=== PATIENT | female | born 1990 | race Caucasian/White ===

== ENCOUNTER 2019-05-06 04:09 | Inpatient (IN) ==
[2019-05-06] MEDS ORDERED: PENICILLIN G POTASSIUM 6 MU in DEXTROSE 5% 250 ML IV STA (04:30)
[2019-05-06] MEDS ORDERED: OXYTOCIN 30 UNITS/500 ML BAG IV PRN ×2 (04:30→06:48)
[2019-05-06 04:51] LABS: Hematocrit (blood only) 35.9 % (37-47); Hemoglobin 12.3 g/dL (12.0-16.0); Mean Corpuscular Volume 83.3 fL (80-100); Mean Platelet Volume 9.2 fL (7.4-10.4); Platelet Count 210 K/uL (130-400); RDW Coefficient of Variation 14.7 % (11.5-14.5); RDW Standard Deviation 44.9 fL (36.4-46.3); Red Blood Count 4.31 M/uL (4.2-5.4); White Blood Count 12.31 K/uL (4.8-10.8)
[2019-05-06] MEDS: LACTATED RINGER'S 1,000 ML IV PRN ×4 (04:53→23:57)
[2019-05-06 05:37] LABS: Mean Corpuscular Hgb Conc 34.3 g/dL (32-36)
--- NOTE | 2019-05-06 06:54 | History & Physical Report ---
Date of Service May 06, 2019 Assessment & Plan (1) Supervision of normal intrauterine in primigravida: - tracing Cat I - mild irregular ctx's - (+) GBS, PCN started - discussed with patient and partner - recommend pitocin, PROM with (+) GBS - pt consents - Epidural prn per patient comfort - anticipate History of Present Illness Chief Complaint: leaking fluid Primary Care Provider: NO PCP The patient is a 28-year-old 1 para 0 with an EDC of 16 May who is admitted at 38+ weeks gestational age with spontaneous rupture of membranes. Patient states of membranes ruptured approximately 0320 hrs. on day of admission. She describes the fluid is clear. Patient denies vaginal bleeding or any contractions. The patient has had a benign course. Her blood type is B+, antibody negative, rubella immune, hepatitis B negative, she declined cell free DNA screening, she declined quad screen, she had a normal 1 hour Glucola x2, and a positive third trimester beta strep culture Allergies Allergy/AdvReac Type Severity Reaction Status Date / Time No Known Allergies Allergy Verified 05/06/19 04:28 Home Medications Home Medications Medication Instructions Recorded Confirmed Type PNV cmb#95-ferrous fumarate-FA 1 tab PO DAILY 05/06/19 05/06/19 History [] docusate sodium [Colace] 100 mg PO DIRECTED PRN 05/06/19 05/06/19 History ferrous sulfate [iron] 325 mg PO DAILY 05/06/19 05/06/19 History fexofenadine [Kassandra Allergy] 180 mg PO DAILY 05/06/19 05/06/19 History Patient History Medical History Anxiety no meds Ovarian cyst 2018 [place] teeth removed at age 17 Social History Preferred Language: Latvian Communication Ability: Effective [employer] Network Architect Required: No Beliefs That Will Affect Care: None marital status: Current Living Situation: Spouse Current Living Situation Comment: town house Other Information That Helps Us Care for You: No Feels Safe at Home: Yes Safety Concerns: Feels Safe At This Time Smoking Status: Never smoker Hx Alcohol Use: No Hx Substance Use: No Physical Exam Constitutional: WD/WN, vitals as above Respiratory: Auscultation: lungs clear to auscultation bilaterally Cardiovascular: RRR, no murmur, no edema Extremities: no calf tenderness Gastrointestinal (Abdomen): Gravid: Vertex, (+) FHT's, mild irregular ctx's, EFW 7 1/2 LBS Genitourinary: OB Exam Monitor Tracing: + external uterine monitor used, + category I and + normal FHT variability Cervix: /-2 Results & Data Vital Signs (Past 12 Hours) Vital Signs Temp Pulse Resp BP 05/06/19 05:57 37.1 C 80 18 112/71 05/06/19 04:33 37 C 74 18 141/81 H 05/06/19 04:24 37.0 C 74 18 141/81 H
[2019-05-06] MEDS: PENICILLIN G POTASSIUM 3 MU in DEXTROSE 5% 100 ML IV PRN ×4 (09:04→21:18)
[2019-05-06] MEDS ORDERED: BUPIVACAINE 0.25% 30 ML VIAL ONE ×2 (11:41→22:25)
[2019-05-06] MEDS ORDERED: ePHEDrine sulfate 50 MG/ML AMP ONE (11:41)
[2019-05-06] MEDS ORDERED: fentaNYL 2MCG/ML ROPIV 1.25MG/ML 100 ML BAG EPI ONE (11:42)
[2019-05-06] MEDS ORDERED: fentaNYL citrate 100 MCG/2 ML VIAL ONE ×2 (11:42→22:25)
--- NOTE | 2019-05-06 12:05 | Anesthesiology Consultation ---
Date of Service May 06, 2019 Assessment & Plan (1) Encounter for pre-operative examination: Chart Review Chart Review: Acceptable Risk for Labor Epidural Consults Requested none ASA ASA2 Proposed Anesthesia Anesthesia Type: Labor Epidural Risk / Benefits Reviewed With: PT / POA / Parent / Guardian, Accepts Plan and Informed Consent Obtained History Height/Weight Height: 5 ft 2 in Weight: 76.204 kg Allergies Allergy/AdvReac Type Severity Reaction Status Date / Time No Known Allergies Allergy Verified 05/06/19 04:28 Medications Home Medications Medication Instructions Recorded Confirmed Last Taken PNV cmb#95-ferrous fumarate-FA 1 tab PO DAILY 05/06/19 05/06/19 05/05/19 09:00 [] docusate sodium [Colace] 100 mg PO DIRECTED PRN 05/06/19 05/06/19 05/04/19 09:00 ferrous sulfate [iron] 325 mg PO DAILY 05/06/19 05/06/19 05/05/19 09:00 fexofenadine [Kassandra Allergy] 180 mg PO DAILY 05/06/19 05/06/19 Unknown Active Medications Generic Name Dose Route Start Last Admin Trade Name Freq PRN Reason Stop Dose Admin Lactated Ringer's 1,000 mls @ 125 mls/hr 05/06/19 04:30 05/06/19 11:50 Lr IV 05/08/19 04:29 999 mls/hr .Q8H PRN Administration L&D Protocol Protocol Penicillin G Potassium 3 mu/ 106 mls @ 100 mls/hr 05/06/19 04:54 05/06/19 10:11 Dextrose IV 05/16/19 04:53 Infused Q4H PRN Infusion Give until delivery Oxytocin 30 units in 500 mls @ 11 mls/hr 05/06/19 06:48 05/06/19 11:05 Pitocin IV 05/08/19 06:47 0.66 units/hr .Q24H PRN 11 mls/hr Labor Induction/Augmentation Titration Protocol 0.66 UNITS/HR Past Medical History Medical History Anxiety no meds Ovarian cyst 2018 [place] teeth removed at age 17 Exercise / Class Metabolic Activity II 4-5 Yardwork/Stairs/Walk up hill Past Anesthesia History No Hx of Anesthesia Complications and No Family Hx of Anesthesia Complications History of PONV No Hx of PONV and No Hx of Motion Sickness Social History Smoking Status: Never smoker Hx Alcohol Use: No Hx Substance Use: No Physical Exam Vital Signs Last Vital Signs Temp 98.1 F 05/06/19 11:09 Pulse 65 05/06/19 11:59 Resp 18 05/06/19 11:09 BP 111/70 05/06/19 10:03 Pulse Ox 99 05/06/19 11:59 ENMT Mouth: no dentition abnormality Thyromental Distance: > or= 3.5 Finger Breadths Mallampati Class: II Neck normal visual inspection Respiratory normal respiratory effort Auscultation: lungs clear to auscultation bilaterally Cardiovascular Rate/Rhythm: regular rate and regular rhythm Testing Laboratory Results 05/06/19 04:41
[2019-05-06] MEDS ORDERED: NALBUPHINE HCL INJ 10 MG/ML AMP IV PRN (12:24)
[2019-05-06] MEDS ORDERED: ONDANSETRON INJ 2 MG/ML 2 ML VIAL IV PRN (12:24)
[2019-05-06] MEDS ORDERED: DiphenhydrAMINE HCL 50 MG/ML VIAL IV PRN (12:24)
[2019-05-06] MEDS ORDERED: NALOXONE HCL 1 MG in SODIUM CHLORIDE 0.9% 1000ML 1,000 ML IV PRN (12:24)
[2019-05-06] MEDS ORDERED: ePHEDrine sulfate 50 MG/ML AMP IV PRN (12:24)
[2019-05-06] MEDS ORDERED: NALOXONE HCL 0.4 MG/1 ML VIAL/CARP IV PRN (12:24)
[2019-05-06] MEDS ORDERED: fentaNYL 2MCG/ML ROPIV 1.25MG/ML 100 ML BAG EPI PRN (12:24)
--- NOTE | 2019-05-06 12:37 | Labor Progress Brief Note ---
Date of Service May 06, 2019 Subjective Comfortable with epidural Assessment & Plan (1) Supervision of normal intrauterine in primigravida: - tracing Cat II - IUPC placed - continue pitocin Physical Exam Genitourinary: Cervix: no change, IUPC placed Results & Data Vital Signs (Past 12 Hours) Vital Signs Temp Pulse Resp BP Pulse Ox 05/06/19 12:34 66 98 05/06/19 12:33 77 108/60 05/06/19 12:31 64 112/64 05/06/19 12:29 67 109/62 100 05/06/19 12:27 66 104/59 L 05/06/19 12:25 68 106/59 L 05/06/19 12:24 66 99 05/06/19 12:23 71 105/57 L 05/06/19 12:19 68 100 05/06/19 12:14 75 100 05/06/19 12:09 84 100 05/06/19 12:04 63 100 05/06/19 11:59 65 99 05/06/19 11:54 61 100 05/06/19 11:49 62 100 05/06/19 11:44 64 100 05/06/19 11:09 36.7 C 18 05/06/19 10:03 93 H 111/70 05/06/19 09:20 82 120/75 05/06/19 08:35 72 106/69 05/06/19 07:27 79 116/72 05/06/19 07:03 78 120/78 05/06/19 07:00 37.0 C 16 05/06/19 05:57 37.1 C 80 18 112/71 05/06/19 04:33 37 C 74 18 141/81 H 05/06/19 04:24 37.0 C 74 18 141/81 H
--- NOTE | 2019-05-06 17:32 | Labor Progress Brief Note ---
Date of Service May 06, 2019 Subjective Comfortable with epidural Assessment & Plan (1) Supervision of normal intrauterine in primigravida: - tracing Cat II - continue pitocin Physical Exam Genitourinary: OB Exam Monitor Tracing: + category II and + normal FHT variability Cervix: 3-4/90/0 Results & Data Vital Signs (Past 12 Hours) Vital Signs Temp Pulse Resp BP Pulse Ox 05/06/19 17:29 80 99 05/06/19 17:26 77 112/70 05/06/19 17:24 73 100 05/06/19 17:19 74 100 05/06/19 17:14 74 100 05/06/19 17:10 67 110/69 05/06/19 17:09 73 99 05/06/19 17:04 76 99 05/06/19 16:59 73 99 05/06/19 16:56 65 105/68 05/06/19 16:54 71 99 05/06/19 16:49 69 99 05/06/19 16:44 66 99 05/06/19 16:40 68 114/72 05/06/19 16:39 71 99 05/06/19 16:34 70 98 05/06/19 16:29 72 99 05/06/19 16:26 75 110/73 05/06/19 16:24 76 99 05/06/19 16:19 76 99 05/06/19 16:14 84 99 05/06/19 16:10 67 118/71 05/06/19 16:09 64 100 05/06/19 16:04 64 100 05/06/19 15:59 71 100 05/06/19 15:57 75 127/54 L 05/06/19 15:54 64 100 05/06/19 15:49 82 100 05/06/19 15:44 74 100 05/06/19 15:40 76 108/63 05/06/19 15:39 93 H 100 05/06/19 15:34 76 100 05/06/19 15:29 70 100 05/06/19 15:25 75 111/70 05/06/19 15:24 76 99 05/06/19 15:19 81 100 05/06/19 15:14 78 100 05/06/19 15:10 66 113/77 05/06/19 15:09 77 100 05/06/19 15:04 75 96 05/06/19 14:59 61 89 L 05/06/19 14:55 37.0 C 58 L 18 115/69 05/06/19 14:54 65 100 05/06/19 14:51 56 L 114/64 05/06/19 14:49 62 100 05/06/19 14:46 56 L 116/65 05/06/19 14:44 60 100 05/06/19 14:40 59 L 118/67 05/06/19 14:39 64 100 05/06/19 14:34 66 113/65 100 05/06/19 14:31 60 122/68 05/06/19 14:30 18 05/06/19 14:29 62 100 05/06/19 14:26 68 91 05/06/19 14:24 73 132/73 100 05/06/19 14:20 75 137/70 05/06/19 14:19 61 99 05/06/19 14:17 70 89 L 05/06/19 14:16 62 126/66 05/06/19 14:14 67 100 05/06/19 14:09 61 109/72 100 05/06/19 14:06 59 L 118/73 05/06/19 14:04 61 100 05/06/19 14:00 56 L 16 112/68 05/06/19 13:59 59 L 100 05/06/19 13:56 55 L 123/69 05/06/19 13:54 57 L 100 05/06/19 13:51 56 L 109/68 05/06/19 13:49 58 L 100 05/06/19 13:44 55 L 112/67 100 05/06/19 13:40 54 L 112/67 05/06/19 13:39 54 L 100 05/06/19 13:36 55 L 109/64 05/06/19 13:34 54 L 100 05/06/19 13:30 54 L 18 106/66 05/06/19 13:29 53 L 100 05/06/19 13:25 55 L 112/66 05/06/19 13:24 53 L 100 05/06/19 13:20 56 L 113/64 05/06/19 13:19 56 L 99 05/06/19 13:16 54 L 115/66 05/06/19 13:15 16 05/06/19 13:14 56 L 100 05/06/19 13:09 58 L 110/68 100 05/06/19 13:05 36.9 C 55 L 16 111/62 05/06/19 13:04 59 L 100 05/06/19 13:01 58 L 114/71 05/06/19 12:59 58 L 100 05/06/19 12:55 63 99/66 L 05/06/19 12:54 65 100 05/06/19 12:51 57 L 106/70 05/06/19 12:49 60 100 05/06/19 12:46 62 116/59 L 05/06/19 12:45 16 05/06/19 12:44 64 100 05/06/19 12:39 67 110/65 100 05/06/19 12:37 74 115/68 05/06/19 12:35 67 112/62 05/06/19 12:34 66 98 05/06/19 12:33 77 108/60 05/06/19 12:31 64 112/64 05/06/19 12:30 18 05/06/19 12:29 67 109/62 100 05/06/19 12:27 66 104/59 L 05/06/19 12:25 68 106/59 L 05/06/19 12:24 66 99 05/06/19 12:23 71 105/57 L 05/06/19 12:19 68 100 05/06/19 12:14 75 100 05/06/19 12:09 84 100 05/06/19 12:04 63 100 05/06/19 11:59 65 99 05/06/19 11:54 61 100 05/06/19 11:49 62 100 05/06/19 11:44 64 100 05/06/19 11:09 36.7 C 18 05/06/19 10:03 93 H 111/70 05/06/19 09:20 82 120/75 05/06/19 08:35 72 106/69 05/06/19 07:27 79 116/72 05/06/19 07:03 78 120/78 05/06/19 07:00 37.0 C 16 05/06/19 05:57 37.1 C 80 18 112/71
--- NOTE | 2019-05-06 20:17 | Labor Progress Brief Note ---
Date of Service May 06, 2019 Subjective feeling pressure Assessment & Plan (1) Supervision of normal intrauterine in primigravida: - tracing Cat II - doing well Physical Exam Genitourinary: /(+)2 Results & Data Vital Signs (Past 12 Hours) Vital Signs Temp Pulse Resp BP Pulse Ox 05/06/19 20:14 97 H 100 05/06/19 20:11 106 H 124/72 05/06/19 20:09 76 100 05/06/19 20:04 69 100 05/06/19 19:59 74 100 05/06/19 19:56 68 125/75 05/06/19 19:54 75 100 05/06/19 19:49 64 99 05/06/19 19:44 66 99 05/06/19 19:41 63 113/69 05/06/19 19:39 63 99 05/06/19 19:34 66 100 05/06/19 19:29 68 99 05/06/19 19:25 70 113/69 05/06/19 19:24 66 99 05/06/19 19:19 67 99 05/06/19 19:14 67 99 05/06/19 19:10 37.0 C 61 18 110/70 05/06/19 19:09 66 98 05/06/19 19:04 65 98 05/06/19 18:59 69 100 05/06/19 18:55 66 104/58 L 05/06/19 18:54 81 100 05/06/19 18:49 76 98 05/06/19 18:44 78 99 05/06/19 18:40 76 108/71 05/06/19 18:39 67 98 05/06/19 18:34 80 98 05/06/19 18:29 73 99 05/06/19 18:26 75 107/66 05/06/19 18:24 75 99 05/06/19 18:19 70 98 05/06/19 18:14 73 98 05/06/19 18:11 76 112/66 05/06/19 18:09 71 99 05/06/19 18:04 78 100 05/06/19 17:59 78 99 05/06/19 17:55 82 115/68 05/06/19 17:54 81 99 05/06/19 17:49 107 H 98 05/06/19 17:44 76 100 05/06/19 17:39 78 100 05/06/19 17:34 74 100 05/06/19 17:29 80 99 05/06/19 17:26 77 112/70 05/06/19 17:24 73 100 05/06/19 17:19 74 100 05/06/19 17:14 74 100 05/06/19 17:10 67 110/69 05/06/19 17:09 73 99 05/06/19 17:04 76 99 05/06/19 16:59 73 99 05/06/19 16:56 36.9 C 65 18 105/68 05/06/19 16:54 71 99 05/06/19 16:49 69 99 05/06/19 16:44 66 99 05/06/19 16:40 68 114/72 05/06/19 16:39 71 99 05/06/19 16:34 70 98 05/06/19 16:29 72 99 05/06/19 16:26 75 110/73 05/06/19 16:24 76 99 05/06/19 16:19 76 99 05/06/19 16:14 84 99 05/06/19 16:10 67 118/71 05/06/19 16:09 64 100 05/06/19 16:04 64 100 05/06/19 15:59 71 100 05/06/19 15:57 75 127/54 L 05/06/19 15:54 64 100 05/06/19 15:49 82 100 05/06/19 15:44 74 100 05/06/19 15:40 76 108/63 05/06/19 15:39 93 H 100 05/06/19 15:34 76 100 05/06/19 15:29 70 100 05/06/19 15:25 75 111/70 05/06/19 15:24 76 99 05/06/19 15:19 81 100 05/06/19 15:14 78 100 05/06/19 15:10 66 113/77 05/06/19 15:09 77 100 05/06/19 15:04 75 96 05/06/19 14:59 61 89 L 05/06/19 14:55 37.0 C 58 L 18 115/69 05/06/19 14:54 65 100 05/06/19 14:51 56 L 114/64 05/06/19 14:49 62 100 05/06/19 14:46 56 L 116/65 05/06/19 14:44 60 100 05/06/19 14:40 59 L 118/67 05/06/19 14:39 64 100 05/06/19 14:34 66 113/65 100 05/06/19 14:31 60 122/68 05/06/19 14:30 18 05/06/19 14:29 62 100 05/06/19 14:26 68 91 05/06/19 14:24 73 132/73 100 05/06/19 14:20 75 137/70 05/06/19 14:19 61 99 05/06/19 14:17 70 89 L 05/06/19 14:16 62 126/66 05/06/19 14:14 67 100 05/06/19 14:09 61 109/72 100 05/06/19 14:06 59 L 118/73 05/06/19 14:04 61 100 05/06/19 14:00 56 L 16 112/68 05/06/19 13:59 59 L 100 05/06/19 13:56 55 L 123/69 05/06/19 13:54 57 L 100 05/06/19 13:51 56 L 109/68 05/06/19 13:49 58 L 100 05/06/19 13:44 55 L 112/67 100 05/06/19 13:40 54 L 112/67 05/06/19 13:39 54 L 100 05/06/19 13:36 55 L 109/64 05/06/19 13:34 54 L 100 05/06/19 13:30 54 L 18 106/66 05/06/19 13:29 53 L 100 05/06/19 13:25 55 L 112/66 05/06/19 13:24 53 L 100 05/06/19 13:20 56 L 113/64 05/06/19 13:19 56 L 99 05/06/19 13:16 54 L 115/66 05/06/19 13:15 16 05/06/19 13:14 56 L 100 05/06/19 13:09 58 L 110/68 100 05/06/19 13:05 36.9 C 55 L 16 111/62 05/06/19 13:04 59 L 100 05/06/19 13:01 58 L 114/71 05/06/19 12:59 58 L 100 05/06/19 12:55 63 99/66 L 05/06/19 12:54 65 100 05/06/19 12:51 57 L 106/70 05/06/19 12:49 60 100 05/06/19 12:46 62 116/59 L 05/06/19 12:45 16 05/06/19 12:44 64 100 05/06/19 12:39 67 110/65 100 05/06/19 12:37 74 115/68 05/06/19 12:35 67 112/62 05/06/19 12:34 66 98 05/06/19 12:33 77 108/60 05/06/19 12:31 64 112/64 05/06/19 12:30 18 05/06/19 12:29 67 109/62 100 05/06/19 12:27 66 104/59 L 05/06/19 12:25 68 106/59 L 05/06/19 12:24 66 99 05/06/19 12:23 71 105/57 L 05/06/19 12:19 68 100 05/06/19 12:14 75 100 05/06/19 12:09 84 100 05/06/19 12:04 63 100 05/06/19 11:59 65 99 05/06/19 11:54 61 100 05/06/19 11:49 62 100 05/06/19 11:44 64 100 05/06/19 11:09 36.7 C 18 05/06/19 10:03 93 H 111/70 05/06/19 09:20 82 120/75 05/06/19 08:35 72 106/69
[2019-05-06] MEDS ORDERED: fentaNYL citrate 100 MCG/2 ML VIAL INT SPINAL STA (22:45)
--- NOTE | 2019-05-06 22:45 | Labor Progress Brief Note ---
Date of Service May 06, 2019 Assessment & Plan (1) Supervision of normal intrauterine in primigravida: - tracing Cat II - steve removed - begin 2nd stage Physical Exam Genitourinary: Cervix: Complete/SHIN/(+)2, cervical lip reduced Results & Data Vital Signs (Past 12 Hours) Vital Signs Temp Pulse Resp BP Pulse Ox 05/06/19 22:41 100 H 120/62 05/06/19 22:39 93 H 99 05/06/19 22:37 91 H 129/75 05/06/19 22:34 118 H 98 05/06/19 22:31 81 104/70 05/06/19 22:29 83 100 05/06/19 22:26 83 115/55 L 05/06/19 22:24 85 100 05/06/19 22:19 85 100 05/06/19 22:14 80 100 05/06/19 22:09 89 100 05/06/19 22:04 76 100 05/06/19 21:59 82 100 05/06/19 21:55 79 109/65 05/06/19 21:54 89 100 05/06/19 21:49 76 100 05/06/19 21:44 74 100 05/06/19 21:41 70 116/70 05/06/19 21:39 73 100 05/06/19 21:34 74 99 05/06/19 21:29 76 99 05/06/19 21:26 83 105/66 05/06/19 21:24 81 100 05/06/19 21:19 84 100 05/06/19 21:14 78 99 05/06/19 21:11 37.1 C 73 18 108/60 05/06/19 21:09 81 99 05/06/19 21:04 86 100 05/06/19 20:59 76 99 05/06/19 20:56 80 100/59 L 05/06/19 20:54 92 H 100 05/06/19 20:49 75 100 05/06/19 20:44 86 100 05/06/19 20:40 80 120/56 L 05/06/19 20:39 84 100 05/06/19 20:34 96 H 100 05/06/19 20:29 87 100 05/06/19 20:26 90 108/65 05/06/19 20:24 89 100 05/06/19 20:19 90 100 05/06/19 20:14 97 H 100 05/06/19 20:11 106 H 124/72 05/06/19 20:09 76 100 05/06/19 20:04 69 100 05/06/19 19:59 74 100 05/06/19 19:56 68 125/75 05/06/19 19:54 75 100 05/06/19 19:49 64 99 05/06/19 19:44 66 99 05/06/19 19:41 63 113/69 05/06/19 19:39 63 99 05/06/19 19:34 66 100 05/06/19 19:29 68 99 05/06/19 19:25 70 113/69 05/06/19 19:24 66 99 05/06/19 19:19 67 99 05/06/19 19:14 67 99 05/06/19 19:10 37.0 C 61 18 110/70 05/06/19 19:09 66 98 05/06/19 19:04 65 98 05/06/19 18:59 69 100 05/06/19 18:55 66 104/58 L 05/06/19 18:54 81 100 05/06/19 18:49 76 98 05/06/19 18:44 78 99 05/06/19 18:40 76 108/71 05/06/19 18:39 67 98 05/06/19 18:34 80 98 05/06/19 18:29 73 99 05/06/19 18:26 75 107/66 05/06/19 18:24 75 99 05/06/19 18:19 70 98 05/06/19 18:14 73 98 05/06/19 18:11 76 112/66 05/06/19 18:09 71 99 05/06/19 18:04 78 100 05/06/19 17:59 78 99 05/06/19 17:55 82 115/68 05/06/19 17:54 81 99 05/06/19 17:49 107 H 98 05/06/19 17:44 76 100 05/06/19 17:39 78 100 05/06/19 17:34 74 100 05/06/19 17:29 80 99 05/06/19 17:26 77 112/70 05/06/19 17:24 73 100 05/06/19 17:19 74 100 05/06/19 17:14 74 100 05/06/19 17:10 67 110/69 05/06/19 17:09 73 99 05/06/19 17:04 76 99 05/06/19 16:59 73 99 05/06/19 16:56 36.9 C 65 18 105/68 05/06/19 16:54 71 99 05/06/19 16:49 69 99 05/06/19 16:44 66 99 05/06/19 16:40 68 114/72 05/06/19 16:39 71 99 05/06/19 16:34 70 98 05/06/19 16:29 72 99 05/06/19 16:26 75 110/73 05/06/19 16:24 76 99 05/06/19 16:19 76 99 05/06/19 16:14 84 99 05/06/19 16:10 67 118/71 05/06/19 16:09 64 100 05/06/19 16:04 64 100 05/06/19 15:59 71 100 05/06/19 15:57 75 127/54 L 05/06/19 15:54 64 100 05/06/19 15:49 82 100 05/06/19 15:44 74 100 05/06/19 15:40 76 108/63 05/06/19 15:39 93 H 100 05/06/19 15:34 76 100 05/06/19 15:29 70 100 05/06/19 15:25 75 111/70 05/06/19 15:24 76 99 05/06/19 15:19 81 100 05/06/19 15:14 78 100 05/06/19 15:10 66 113/77 05/06/19 15:09 77 100 05/06/19 15:04 75 96 05/06/19 14:59 61 89 L 05/06/19 14:55 37.0 C 58 L 18 115/69 05/06/19 14:54 65 100 05/06/19 14:51 56 L 114/64 05/06/19 14:49 62 100 05/06/19 14:46 56 L 116/65 05/06/19 14:44 60 100 05/06/19 14:40 59 L 118/67 05/06/19 14:39 64 100 05/06/19 14:34 66 113/65 100 05/06/19 14:31 60 122/68 05/06/19 14:30 18 05/06/19 14:29 62 100 05/06/19 14:26 68 91 05/06/19 14:24 73 132/73 100 05/06/19 14:20 75 137/70 05/06/19 14:19 61 99 05/06/19 14:17 70 89 L 05/06/19 14:16 62 126/66 05/06/19 14:14 67 100 05/06/19 14:09 61 109/72 100 05/06/19 14:06 59 L 118/73 05/06/19 14:04 61 100 05/06/19 14:00 56 L 16 112/68 05/06/19 13:59 59 L 100 05/06/19 13:56 55 L 123/69 05/06/19 13:54 57 L 100 05/06/19 13:51 56 L 109/68 05/06/19 13:49 58 L 100 05/06/19 13:44 55 L 112/67 100 05/06/19 13:40 54 L 112/67 05/06/19 13:39 54 L 100 05/06/19 13:36 55 L 109/64 05/06/19 13:34 54 L 100 05/06/19 13:30 54 L 18 106/66 05/06/19 13:29 53 L 100 05/06/19 13:25 55 L 112/66 05/06/19 13:24 53 L 100 05/06/19 13:20 56 L 113/64 05/06/19 13:19 56 L 99 05/06/19 13:16 54 L 115/66 05/06/19 13:15 16 05/06/19 13:14 56 L 100 05/06/19 13:09 58 L 110/68 100 05/06/19 13:05 36.9 C 55 L 16 111/62 05/06/19 13:04 59 L 100 05/06/19 13:01 58 L 114/71 05/06/19 12:59 58 L 100 05/06/19 12:55 63 99/66 L 05/06/19 12:54 65 100 05/06/19 12:51 57 L 106/70 06/30/19 12:49 60 100 05/06/19 12:46 62 116/59 L 05/06/19 12:45 16 05/06/19 12:44 64 100 05/06/19 12:39 67 110/65 100 05/06/19 12:37 74 115/68 05/06/19 12:35 67 112/62 05/06/19 12:34 66 98 05/06/19 12:33 77 108/60 05/06/19 12:31 64 112/64 05/06/19 12:30 18 05/06/19 12:29 67 109/62 100 05/06/19 12:27 66 104/59 L 05/06/19 12:25 68 106/59 L 05/06/19 12:24 66 99 05/06/19 12:23 71 105/57 L 05/06/19 12:19 68 100 05/06/19 12:14 75 100 05/06/19 12:09 84 100 05/06/19 12:04 63 100 05/06/19 11:59 65 99 05/06/19 11:54 61 100 05/06/19 11:49 62 100 05/06/19 11:44 64 100 05/06/19 11:09 36.7 C 18
[2019-05-07 01:36] LABS: Base Excess Cord Arterial Bld -9.7 mEq/L (-9-1.8); CO2 Cord Arterial Blood 37 mmHg (39.1-73.5); HCO3 Cord Arterial Blood 17 mmol/L (19.7-28.5); pH Cord Arterial Blood 7.26 (7.1-7.38)
[2019-05-07 01:43] LABS: Base Excess Cord Venous Blood -9.7 mEq/L (-7.7-1.9); Cord Venous Blood HCO3 16 mmol/L (18.4-26.8); Cord Venous Blood PCO2 34 mmHg (30.4-57.2); Cord Venous Blood PO2 26 mmHg (14.1-43.3); Cord Venous Blood pH 7.29 (7.20-7.44)
--- NOTE | 2019-05-07 01:47 | Delivery Summary ---
DATE OF OPERATION: 05/07/2019 DATE OF DELIVERY: 05/07/2019 FINDINGS: Viable male infant with Apgars of 8 and 9. Baby delivered by vacuum extraction over midline episiotomy for maternal exhaustion. Cord gases, cord blood samples obtained. Cervical laceration and episiotomy repaired. ESTIMATED BLOOD LOSS: 300 mL. LABOR NOTE: The patient is a 28-year-old 1, para 0 with an EDC of 05/16 at 38+ weeks gestational age who was admitted with spontaneous rupture of membranes. The patient states the membranes ruptured at 0320 hours on 05/06/2019. She described the fluid as clear. She denied vaginal bleeding or contractions. The patient had had a benign course. Her blood type is B positive, antibody negative, rubella immune, hepatitis B negative. She declined cell free DNA screening, she declined a quad screen, she had normal 1 hour Glucola x2, and a positive third trimester beta strep culture. Upon admission, the patient was 1 cm dilated, 80% effaced, -2 station with a category 1 tracing. Because of the GBS culture, the patient was started on penicillin 6 million unit loading dose, then 3 million units every 4 hours until delivery. The patient was observed for approximately 4 hours and contractions continued to be irregular and mild. As such, Pitocin was initiated per induction protocol. The patient progressed into a regular labor pattern and became uncomfortable. Anesthesia was consulted and an epidural was placed. The patient made slow steady progress to full dilatation. She required reduction of an anterior lip at a +2 station to begin her second stage. The patient pushed for 2 hours bringing the vertex down to the peritoneum. At this point, the patient's energy was gone and vacuum delivery was discussed with the patient and her partner who verbally consented. With the next contraction, the baby was delivered over midline episiotomy. There was a compound hand presentation which was reduced and the baby was delivered. Cord was clamped and cut. Cord blood donation kit was collected. Cord gases, cord blood samples were obtained. Placenta was delivered spontaneously and sent for pathological evaluation. Inspection of the cervix showed a 4 cm laceration at the 3 o'clock position. This was closed with a running 2-0 Vicryl suture. The episiotomy was repaired with 4-0 and 2-0 Vicryl in routine fashion. Estimated blood loss was 300 mL. Sponge and needle count was correct. I attest to the content of the Intraoperative Record and any orders documented therein. Any exception s are noted below.
--- NOTE | 2019-05-07 01:47 | Anesthesia Procedure Note ---
Date of Service May 07, 2019 Anesthesia Post Epidural Note Vital Signs Vital Signs: Temp Pulse Resp BP Pulse Ox 37.7 C H 90 20 134/63 98 05/07/19 00:58 05/07/19 01:31 05/06/19 22:54 05/07/19 01:31 05/07/19 01:15 Pain Intensity Bilateral Abdomen: Pain Intensity: 0 Notes Mental Status: alert / awake / arousable and participated in evaluation Nausea / Vomiting: adequately controlled Pain: adequately controlled Airway Patency, RR, SpO2: stable & adequate BP & HR: stable & adequate Hydration State: stable & adequate Neuraxial Anesthesia: was administered and sensory block is resolving Anesthetic Complications: no major complications apparent and Pt Satisfied with anesthetic care Epidural: Removed without complications and With tip intact
[2019-05-07 01:52] LABS: Oxygen Sat Cord Arterial Blood < 60.0 % (<60)
[2019-05-07 01:54] LABS: O2 Saturation Cord Venous Bld < 68.0 % (<68)
[2019-05-07] MEDS ORDERED: HYDROCORTISONE ACETATE 25 MG SUPP PR PRN (02:41)
[2019-05-07] MEDS ORDERED: SUPERCREAM 0.870% 15 GM JAR EXT PRN (02:41)
[2019-05-07] MEDS ORDERED: BENZOCAINE 20% AER SPR 82.5 GM CAN EXT PRN (02:41)
[2019-05-07] MEDS ORDERED: ACETAMINOPHEN W/CODEINE #3 1 TAB PO PRN (02:41)
[2019-05-07] MEDS ORDERED: DIPHTHERIA/TETANUS/PERTUSSIS 0.5 ML SYR/VIAL IM ONE (02:41)
[2019-05-07] MEDS ORDERED: OXYTOCIN 30 UNITS/500 ML BAG IV PRN (02:41)
[2019-05-07] MEDS: IBUPROFEN 600 MG TAB PO PRN ×4 (03:04→20:31)
[2019-05-07] MEDS: FERROUS SULFATE 325 MG TAB PO SCH (08:05)
[2019-05-07] MEDS: PRENATAL VITAMIN 1 TAB PO SCH (08:05)
[2019-05-07] MEDS: DOCUSATE SODIUM 100 MG CAP PO SCH ×2 (08:05→20:31)
[2019-05-07] MEDS: ACETAMINOPHEN 325 MG TAB PO PRN (23:22)
[2019-05-08 06:48] LABS: Hematocrit (blood only) 30.7 % (37-47); Mean Corpuscular Hgb Conc 32.6 g/dL (32-36); Mean Corpuscular Volume 84.8 fL (80-100); Mean Platelet Volume 9.3 fL (7.4-10.4); Platelet Count 173 K/uL (130-400); RDW Coefficient of Variation 15.4 % (11.5-14.5); RDW Standard Deviation 48.1 fL (36.4-46.3); Red Blood Count 3.62 M/uL (4.2-5.4); White Blood Count 11.04 K/uL (4.8-10.8)
--- NOTE | 2019-05-08 07:55 | Obstetrical Progress Note ---
Date of Service May 08, 2019 Assessment & Plan (1) Status post vaginal delivery: PPD#1 doing well. Anticipate discharge tomorrow. Continue routine care. Subjective Ambulation: ambulating normally Voiding: no voiding problems Passing Gas:: Yes Diet Tolerance:: regular diet Lochia:: Moderate Feeding Type:: breast feeding PPD#1 doing well. Review of Systems All systems reviewed & are unremarkable except as noted in HPI & below Physical Exam Gen: AAOx3 NAD CV: RRR L: CTAB Abd: soft, NTTP. Fundus firm, below umbilicus. Ext: no edema Results & Data Vital Signs (Past 12 Hours) Vital Signs Temp Pulse Resp BP 05/07/19 23:25 36.6 C 64 18 102/68
[2019-05-08 08:02] VITALS: O2SAT 99
[2019-05-08] MEDS: ACETAMINOPHEN 325 MG TAB PO PRN ×2 (08:08→13:50)
[2019-05-08] MEDS: DOCUSATE SODIUM 100 MG CAP PO SCH ×2 (08:08→20:43)
[2019-05-08] MEDS: FERROUS SULFATE 325 MG TAB PO SCH (08:08)
[2019-05-08] MEDS: PRENATAL VITAMIN 1 TAB PO SCH (08:08)
[2019-05-08] MEDS ORDERED: BISACODYL 5 MG TABEC PO SCH (20:00)
[2019-05-09 01:58] VITALS: TEMP 98.1
[2019-05-09] MEDS: IBUPROFEN 600 MG TAB PO PRN ×2 (03:10→11:31)
[2019-05-09 06:52] LABS: Hematocrit (blood only) 33.2 % (37-47); Hemoglobin 10.8 g/dL (12.0-16.0)
--- NOTE | 2019-05-09 07:43 | Obstetrical Progress Note ---
Date of Service May 09, 2019 Assessment & Plan (1) Status post vaginal delivery: Doing well. Plan d/c today. Instructions given and questions answered. Day #:: 2 Subjective Ambulation: ambulating normally Voiding: no voiding problems Passing Gas:: Yes Diet Tolerance:: regular diet Lochia:: Small Feeding Type:: breast feeding Physical Exam Constitutional WD/WN, vitals as above Cardiovascular Extremities: no calf tenderness and no pedal edema Gastrointestinal (Abdomen) soft, nt, nd fundus firm, nt at u Results & Data Vital Signs (Past 12 Hours) Vital Signs Temp Pulse Resp BP 05/08/19 23:55 36.7 C 65 18 107/66
[2019-05-09 07:53] VITALS: BP 103/64; PULSE 60
[2019-05-09] MEDS ORDERED: FEXOFENADINE 60 MG TAB PO ONE (08:09)
[2019-05-09] MEDS: DOCUSATE SODIUM 100 MG CAP PO SCH (09:27)
[2019-05-09] MEDS: PRENATAL VITAMIN 1 TAB PO SCH (09:28)
--- NOTE | 2019-05-10 01:48 | Discharge Summary ---
DATE OF ADMISSION: 05/06/2019 DATE OF DISCHARGE: 05/09/2019 ADMITTING DIAGNOSES: 1. Term . 2. Premature rupture of membranes. 3. Positive group B streptococcus. DISCHARGE DIAGNOSES: 1. Term . 2. Maternal exhaustion. PROCEDURES PERFORMED: Vacuum assisted vaginal delivery. DISCHARGE MEDICATIONS: None. ADMISSION HISTORY: The patient is a 28-year-old 1, para 0 with an EDC of 05/16 who was admitted at 38+ weeks gestational age with spontaneous rupture of membranes. The patient states the membranes ruptured approximately 0320 hours on day of admission. She described the fluid as clear. She denied vaginal bleeding or any contractions. The patient has had a benign course. Her blood type B positive, antibody negative, rubella immune, hepatitis B negative. She declined cell-free DNA screening, she declined quad screen, she had normal 1 hour Glucola x2, and a positive third trimester beta strep culture. ADMISSION PHYSICAL EXAMINATION: GENERAL: Showed a gravid female in no acute distress. VITAL SIGNS: Blood pressure of 141/81. HEENT: Unremarkable. NECK: Supple. LUNGS: Clear. HEART: With a regular rhythm and rate. ABDOMEN: Gravid, vertex, positive heart tones, mild irregular contractions. Estimated weight is 7.5 pounds. PELVIC: Showed gross rupture. Cervix was 1 cm dilated, 80% effaced and -2 station. ADMISSION LABORATORY VALUES: Showed a H&H of 12.3 and 35.9. HOSPITAL COURSE: With the rupture of membranes and positive GBS status, the patient was started on penicillin 6 million unit loading dose and 3 million units every 4 hours until delivery. The patient was observed for approximately 4 hours with no spontaneous labor onset. Therefore, Pitocin was initiated per induction protocol. The patient progressed into a regular labor pattern. She became uncomfortable and anesthesia was consulted. An intrauterine pressure catheter was placed in order to better monitor contractions. The patient made slow progress but progressed to full dilatation and began her second stage. The patient pushed for 2 hours bringing the vertex down to the peritoneum, but at that point, she became exhausted. Treatment options were discussed, and the patient and her partner gave verbal consent to a vacuum extraction. A viable male with Apgars of 8 and 9 was delivered over midline episiotomy for maternal exhaustion. Cord gases and cord blood samples were obtained. A cervical laceration was noted postdelivery, which was repaired along with the episiotomy. , the patient did well. The H&H came back at 10.8 and 33.2. She was discharged home on the second day with the routine discharge instructions and the prescriptions for the medications as listed as above. She will follow up in the office in 6 weeks for check, but as always she has been instructed to call with any questions, problems or difficulties.
== END 2019-05-09 12:35 | disposition home or self-care (01) | DRG 807 ==
LOC: OPB 04:09 → 4S1 04:11 → 4S2 05-07 03:36